=== PATIENT | male | born 1975 | race Caucasian/White ===

== ENCOUNTER 2017-09-23 08:14 | Day surgery (SDC) | payer OTHER ==
[2017-09-23] VITALS (12 sets, daily range): BP systolic 105–128; BP diastolic 70–91; PULSE 45–64; TEMP 97.4–97.8
[~2017-09-23] VITALS: Ht 177.8 cm; Wt 79.5 kg
[2017-09-23 08:49] LABS: HEMATOCRIT 43.6 % (42.0-52.0); HEMOGLOBIN 14.9 g/dl (13.5-18.0); MEAN CELL VOLUME 95 fl (80.0-100.0); MEAN CORPUSCULAR HEMOGLOBIN 32 pg (27.0-31.0); MEAN CORPUSCULAR HGB CONC 34 g/dl (33.0-37.0); MEAN PLATELET VOLUME 9.6 fl (7.4-10.4); PLATELET COUNT 213 K/mm3 (130-400); RED BLOOD COUNT 4.61 M/mm3 (4.20-5.60); WHITE BLOOD COUNT 5.3 K/mm3 (4.8-10.8)
[2017-09-23 08:58] LABS: PROTHROMBIN TIME 10.8 SECONDS (9.7-12.8)
[2017-09-23 09:02] LABS: CALCIUM 9.6 mg/dL (8.4-10.2); CREATININE, serum 1.03 mg/dL (0.66-1.25); POTASSIUM 4.1 mmol/L (3.4-5.0)
[2017-09-23] MEDS ORDERED: ZOCOR 40MG40 MG PO (09:03)
[2017-09-23] MEDS ORDERED: ASPIRIN E.C. 8181 MG PO (09:03)
[2017-09-23] MEDS ORDERED: PRINIVIL20 MG PO (09:03)
[2017-09-23] MEDS ORDERED: ALPHAGAN OPHTH D5 ML OU (09:04)
[2017-09-23] MEDS ORDERED: CARDI-OMEGA1000 MG PO (09:04)
[2017-09-23] MEDS ORDERED: TYLENOL 500MG500 MG PO (09:05)
[2017-09-23] MEDS ORDERED: CELEBREX 1100 MG/CAP PO (09:05)
[2017-09-23] MEDS ORDERED: FLONASE NASAL S16 GM NS (09:06)
[2017-09-23] MEDS ORDERED: ALLEGRA 180MG180 MG PO (09:07)
[2017-09-23] MEDS ORDERED: VITAMINC500CH PO (09:07)
[2017-09-23] MEDS ORDERED: GINKGO3 PO (09:08)
[2017-09-23] MEDS ORDERED: CENTRUM MEN'S PO (09:08)
== END 2017-09-23 15:38 | disposition home or self-care (01) ==
LOC: COL.CAR 08:14
PROVIDERS: Internal Medicine Cardiovascular Disease
DX: I25.10 Atherosclerotic heart disease of native coronary artery without angina pectoris (principal); R07.89 Other chest pain; I10 Essential (primary) hypertension; E78.2 Mixed hyperlipidemia; H40.9 Unspecified glaucoma; Z82.49 Family history of ischemic heart disease and other diseases of the circulatory system
CPT/HCPCS: J2250; J3010; Q9967